=== PATIENT | male | born 1975 | race Caucasian/White ===

== ENCOUNTER 2024-07-09 16:24 | Emergency (ER) | payer OTHER ==
[~2024-07-09] VITALS: Ht 165.1 cm; Wt 83.9 kg
== END 2024-07-09 18:55 | disposition home or self-care (01) ==
LOC: ED 16:24
DX: S50.01XA Contusion of right elbow, initial encounter (principal); S50.11XA Contusion of right forearm, initial encounter; S40.021A Contusion of right upper arm, initial encounter; W22.03XA Walked into furniture, initial encounter; Y93.89 Activity, other specified; Y92.89 Other specified places as the place of occurrence of the external cause; Y99.8 Other external cause status